=== PATIENT | male | born 1990 | race Caucasian/White ===

== ENCOUNTER 2018-10-03 22:46 | Emergency (ER) | payer SELFPAY, OTHER ==
[2018-10-03] MEDS: morphine LIQ (10 MG/5 ML) CUP PO (23:34)
== END 2018-10-04 00:48 | disposition home or self-care (01) ==
LOC: FTE 22:46
DX: S62.211A Bennett's fracture, right hand, initial encounter for closed fracture (principal); V29.9XXA Motorcycle rider (driver) (passenger) injured in unspecified traffic accident, initial encounter
CPT/HCPCS: 29105; 73090-RT; 73130-RT; 99283-25